=== PATIENT | female | born 1995 | race Caucasian/White ===

== ENCOUNTER → 2023-11-03 | Outpatient (CLI) | payer OTHER | LOC: M CARPUL 12:58 | PROVIDERS: ATTEND Obstetrics & Gynecology | DX: O26.891 Other specified pregnancy related conditions, first trimester (principal); R00.2 Palpitations; Z3A.08 8 weeks gestation of pregnancy ==

== ENCOUNTER 2023-12-19 12:45 | Outpatient (CLI) | payer OTHER ==
[~2023-12-19] VITALS: Ht 172.7 cm; Wt 55.9 kg
[~2023-12-19 12:45] MED LIST: ALBUTEROL SULFATE 2.5MG/0.5ML INH NEB SOLN INH PRN; EPINEPHrine INJ 1 MG/ML 1ML AMP IM PRN; NS 1,000 ML IV SCH; diphenhydrAMINE 50MG/ML VIAL IV PRN; methylPREDNISolone 125MG 2ML VIAL IV PRN
[2023-12-19 13:05] VITALS: BP 117/61; O2SAT 99
[2023-12-19] MEDS: IRON SUCROSE 300 MG in NS 250 ML OVER 90 MIN. IV ONE (13:18)
[2023-12-19] MEDS ORDERED: UNIS25TA3 PO (13:30)
[2023-12-19 14:58] VITALS: BP 105/60; O2SAT 99
== END 2023-12-19 15:00 ==
LOC: M INFU 12:45
PROVIDERS: ATTEND Obstetrics & Gynecology
DX: D64.9 Anemia, unspecified (principal)
CPT/HCPCS: 96365; 96366; J1756

== ENCOUNTER 2024-01-21 11:19 | Outpatient (CLI) | payer OTHER ==
[~2024-01-21] VITALS: Ht 172.7 cm; Wt 57.9 kg
[~2024-01-21 11:19] MED LIST changes: -ALBUTEROL SULFATE 2.5MG/0.5ML INH NEB SOLN INH PRN; -EPINEPHrine INJ 1 MG/ML 1ML AMP IM PRN; -NS 1,000 ML IV SCH; +UNIS25TA3 PO; -diphenhydrAMINE 50MG/ML VIAL IV PRN; -methylPREDNISolone 125MG 2ML VIAL IV PRN
[2024-01-21] MEDS ORDERED: FLINCHW11 PO (11:40)
[2024-01-21] MEDS ORDERED: HOME MED LIST COMPLETE! XX SCH (11:40)
[2024-01-21 11:42] VITALS: BP 110/62
== END 2024-01-21 12:29 | disposition home or self-care (01) ==
LOC: M LDO 11:19
PROVIDERS: ATTEND Specialist
DX: O26.892 Other specified pregnancy related conditions, second trimester (principal); O44.42 Low lying placenta NOS or without hemorrhage, second trimester; N89.8 Other specified noninflammatory disorders of vagina; R10.32 Left lower quadrant pain; Z3A.21 21 weeks gestation of pregnancy

== ENCOUNTER → 2024-02-20 | Outpatient (REF) | payer OTHER ==
[~2024-02-20] MED LIST changes: +FLINCHW11 PO
== END ==
LOC: M SFHCWAGY 14:49
PROVIDERS: ATTEND Obstetrics & Gynecology
DX: Z36.89 Encounter for other specified antenatal screening (principal); Z3A.25 25 weeks gestation of pregnancy

== ENCOUNTER 2024-04-14 12:22 | Outpatient (CLI) | payer OTHER ==
[~2024-04-14] VITALS: Ht 172.7 cm; Wt 67.4 kg
[2024-04-14 12:42] VITALS: BP 125/69
== END 2024-04-14 13:55 | disposition home or self-care (01) ==
LOC: M LDO 12:22
PROVIDERS: ATTEND Specialist
DX: O47.03 False labor before 37 completed weeks of gestation, third trimester (principal); Z3A.32 32 weeks gestation of pregnancy
CPT/HCPCS: 59025; 76815; G0463

== ENCOUNTER 2024-04-30 09:01 | Outpatient (CLI) | payer OTHER ==
[2024-04-30] MEDS: BUTORPHANOL 2 MG/ML 1ML VIAL IV ONE (11:49)
[2024-04-30] MEDS: PROMETHAZINE 25MG/ML 1ML VIAL IV ONE (11:49)
[2024-04-30] MEDS ORDERED: ACET500P3 PO (15:05)
[2024-04-30] MEDS ORDERED: REGL10TA6 PO (15:05)
[2024-04-30] MEDS ORDERED: HOME MED LIST COMPLETE! XX SCH (15:05)
[2024-04-30] MEDS ORDERED: BENA25CA4 PO (15:05)
== END 2024-04-30 14:22 | disposition home or self-care (01) ==
LOC: M LDO 09:01
PROVIDERS: ATTEND Obstetrics & Gynecology
DX: O26.893 Other specified pregnancy related conditions, third trimester (principal); O99.513 Diseases of the respiratory system complicating pregnancy, third trimester; R51.9 Headache, unspecified; J06.9 Acute upper respiratory infection, unspecified; Z3A.35 35 weeks gestation of pregnancy
CPT/HCPCS: 59025; 96374; 96375; G0463; J0595; J2550

== ENCOUNTER 2024-04-30 18:33 | Outpatient (CLI) | payer OTHER ==
[~2024-04-30] VITALS: Ht 172.7 cm; Wt 68.1 kg
[~2024-04-30 18:33] MED LIST changes: +ACET500P3 PO; +BENA25CA4 PO; +REGL10TA6 PO
[2024-04-30 18:50] VITALS: BP 104/66
[2024-04-30 19:36] LABS: HEMATOCRIT 27.5 % (36.0-47.0); HEMOGLOBIN 8.9 g/dl (12.0-15.5); MEAN CORPUSCULAR HEMOGLOBIN 26.8 pg (27.0-33.0); MEAN CORPUSCULAR HGB CONC 32.4 g/dl (32.0-36.5); MEAN CORPUSCULAR VOLUME 82.8 fl (80.0-96.0); PLATELET COUNT, AUTOMATED 150 10^3/uL (150-450); RED BLOOD COUNT 3.32 10^6/uL (4.00-5.40)
[2024-04-30] MEDS: ACETAMINOPHEN 500 MG TAB PO ONE (19:48)
[2024-04-30 19:49] LABS: LDH LACTATE DEHYDROGENASE 199 U/L (120-246)
[2024-04-30 19:50] LABS: ALT/SGPT 15 U/L (7.0-40); AST/SGOT 18 U/L (<34); BILIRUBIN,TOTAL 0.6 MG/DL (0.3-1.2); CREATININE FOR GFR 0.59 MG/DL (0.55-1.30); GLOMERULAR FILTRATION RATE > 60.0 (>60)
[2024-04-30 19:54] LABS: URIC ACID 4.5 MG/DL (3.1-7.8)
[2024-04-30] MEDS: PROMETHAZINE 25MG/ML 1ML VIAL IV ONE (20:47)
[2024-04-30] MEDS: OSELTAMIVIR PHOSPHATE 75 MG CAP (TAMIFLU) PO SCH (20:47)
[2024-04-30] MEDS: BUTORPHANOL 2 MG/ML 1ML VIAL IV ONE (20:48)
[2024-04-30] MEDS: LR 1,000 ML IV SCH (20:49)
[2024-04-30] MEDS: LR 1,000 ML IV ONE (20:49)
[2024-05-01 06:18] VITALS: BP 97/58
== END 2024-05-01 06:20 | disposition home or self-care (01) ==
LOC: M LDO 18:33
PROVIDERS: ATTEND Obstetrics & Gynecology
DX: O99.513 Diseases of the respiratory system complicating pregnancy, third trimester (principal); J10.89 Influenza due to other identified influenza virus with other manifestations; Z3A.35 35 weeks gestation of pregnancy
CPT/HCPCS: 59025; 76705; 76815; 76819; 76820; 81001; 82247; 83615; 84450; 84460; 84550; 85027; 87486; 87581; 87633; 87798; 96374; 96375; G0463; J0595; J2550

== ENCOUNTER → 2024-05-08 | Outpatient (REF) | payer OTHER | LOC: M SFHCWAGY 12:21 | PROVIDERS: ATTEND Obstetrics & Gynecology | DX: Z36.85 Encounter for antenatal screening for Streptococcus B (principal); Z3A.36 36 weeks gestation of pregnancy ==

== ENCOUNTER 2024-05-19 12:28 | Outpatient (CLI) | payer OTHER ==
[~2024-05-19] VITALS: Ht 172.7 cm; Wt 71.1 kg
[2024-05-19 12:44] VITALS: BP 112/64; O2SAT 99
[2024-05-19] MEDS ORDERED: HOME MED LIST COMPLETE! XX SCH (12:45)
== END 2024-05-19 13:25 | disposition home or self-care (01) ==
LOC: M LDO 12:28
PROVIDERS: ATTEND Specialist
DX: O47.03 False labor before 37 completed weeks of gestation, third trimester (principal); Z3A.37 37 weeks gestation of pregnancy
CPT/HCPCS: 59025; G0463